=== PATIENT | female | born 1950 | race Caucasian/White ===

== ENCOUNTER → 2017-11-23 | Outpatient (CLI) | payer MEDICARE ==
--- NOTE | 2017-11-23 10:17 | RADIOLOGY REPORT (SQ) ---
EXAM DESCRIPTION: CT PELVIS WITH COMPLETED DATE/TIME: 11/23/2017 9:54 am REASON FOR STUDY: CHRONIC PELVIC PAIN R10.2 PELVIC AND PERINEAL PAIN COMPARISON: None. TECHNIQUE: CT scan of the pelvis performed with intravenous and oral contrast using helical scanning technique with dynamic intravenous contrast injection. Images reviewed with soft tissue and bone win dows. Reconstructed coronal and sagittal MPR images reviewed. Delayed images for evaluation of the ur inary system also acquired. All images stored on PACS. All CT scanners at this facility use dose modulation, iterative reconstruction, and/or weight based d osing when appropriate to reduce radiation dose to as low as reasonably achievable (ALARA). [facility]: Dose Right [facility]: CareDose [facility]: Dose Right [facility]: Teradose 4D [facility]: Hipbone CONTRAST TYPE AND DOSE: contrast/concentration: Isovue 350.00 mg/ml; Total Contrast Delivered: 72.0 ml; Total Saline Delivered: 66.0 ml RENAL FUNCTION: Creatinine 0.8. RADIATION DOSE: CT Rad equipment meets quality standard of care and radiation dose reduction techniq ues were employed. CTDIvol: 5.9 - 7.1 mGy. DLP: 375 mGy-cm.. LIMITATIONS: None. FINDINGS: PELVIC BONES: No acute fracture. Cortical bone island in the right iliac bone. No worris ome bone lesions. VISUALIZED SPINE: No acute findings. HIP(S): No acute fracture or dislocation. No worrisome bone lesions. PELVIC SOFT TISSUES: No significant masses. Normal bladder. No free fluid. EXTRAPELVIC SOFT TISSUES: No significant findings. BOWEL AND PERITONEAL CAVITY: No obstruction. No visualized masses. No free fluid. No inflammatory ch anges or thickening of bowel wall. OTHER: No other significant finding. IMPRESSION: NO SIGNIFICANT OR ACUTE FINDINGS IN THE PELVIS. TECHNICAL DOCUMENTATION: JOB ID: [id number] Quality ID # [id number]: Final reports with documentation of one or more dose reduction techniques (e.g., Au tomated exposure control, adjustment of the mA and/or kV according to patient size, use of iterative reconstruction technique) 2010 [employer] All Rights Reserved Reading location - IP/workstation name: [email or web address]
== END ==
LOC: RAD 09:14
PROVIDERS: ATTEND Student in an Organized Health Care Education/Training Program
DX: R10.2 Pelvic and perineal pain (principal)
CPT/HCPCS: 72193; 82565

== ENCOUNTER → 2020-02-09 | Outpatient (CLI) | payer MEDICARE ==
--- NOTE | 2020-02-09 12:16 | DRAGON STRESS TEST REPORT ---
Exercise nuclear stress test Date: February 09, 2020 Referring physician: Boris Lagos PA-C Performing physician: Jose Pope MD Indication: Chest pain Clinical history 70-year-old lady with systemic hypertension and dyslipidemia who reported central chest pain radiating through between her shoulder blades. No effort correlation was endorsed. We decided to proceed with exercise nuclear stress test Procedure The patient presented to the stress lab. Initially rest images were obtained according to standard protocol after the injection of 11.53 millicurie technetium 99m sestamibi. Subsequently the patient underwent exercise stress testing according to standard [place] protocol. The patient's resting EKG showed sinus rhythm at 81 bpm. Patient exercised according to standard [place] protocol for total of 6 minutes and 1 seconds. Baseline heart rate of 88 bpm michael to a maximum rate of 146 bpm which was 97% of predicted max HR for this patient. Resting blood pressure was 142/72 mmHg. This michael to a maximum blood pressure of 196/60 mmHg. There was appropriate increment in heart rate and a mildly hypertensive response to exercise. At peak exercise the patient was injected with 33.9 millicuries of technetium 99m sestamibi. The patient continued to run on the treadmill for approximately 60 seconds. After a period of rest, stress images were obtained according to standard protocol. The total workload was 7 METS. The patient's EKG and vital signs were monitored throughout the procedure. The test was terminated on account of patient achieving target heart rate and also mild discomfort in the hip and effort related dyspnea. No chest pain was reported. Stress EKG is difficult to interpret for ischemia due to excessive movement related artifact. EKG showed sinus rhythm at 81 beats per minute. The patient's stress EKG did not show any evidence for myocardial ischemia. There were no arrhythmias observed. Raw as well as processed rest and stress images were reviewed. There was mild to moderate gut uptake which did not interfere with the study. The rest and stress images show uniform uptake of radioactive isotope without any fixed or reversible defects to suggest myocardial ischemia or myocardial infarction. Attenuation correction was used for the study there is normal contractility post-rest. The calculated ejection fraction is 66%. The TID ratio is 0.78. Conclusion Stress EKG is difficult to interpret for ischemia due to excessive movement related artifact. Suboptimal exercise tolerance. There is no scintigraphic evidence of myocardial infarction or ischemia provoked by exercise. There is normal contractility post-stress. The gated left ventricular ejection fraction is 66 %. The patient will be given an appointment to discuss these results. [facility]ALTH[facility]
== END ==
LOC: RAD 08:03
PROVIDERS: ATTEND Internal Medicine
DX: R07.9 Chest pain, unspecified (principal); I10 Essential (primary) hypertension; E78.5 Hyperlipidemia, unspecified; I48.91 Unspecified atrial fibrillation; I25.9 Chronic ischemic heart disease, unspecified
CPT/HCPCS: 93017; 78452; A9500; Q9969

== ENCOUNTER → 2020-02-17 | Outpatient (CLI) | payer MEDICARE ==
--- NOTE | 2020-02-17 19:02 | XCELERA REPORT ---
[address] [address] Transthoracic Echocardiogram Report Name: CARLOS ZAVALA Age: 70 yrs Gender: Female : 1950 Patient Status: Outpatient Patient Location: Study Date: 02/17/2020 09:19 AM History: Atrial fibrillation HTN Height: 67 in Weight: 150 lb BSA: 1.8 m2 Procedure: A complete two-dimensional transthoracic echocardiogram was performed (2D, M-mode, spectral and color flow Doppler). Reason For Study: A-FIB, HTN, CHRONIC ISCHEMIC HEART DISEASE Ordering Physician: TI STYLES Performed By: Claribel Hughes Interpretation Summary Left ventricular systolic function is normal. The Ejection Fraction estimate is 55-60% The right ventricle is normal in size and function. There is no mitral regurgitation noted. There is no aortic valve stenosis There is a trace amount of aortic regurgitation There is a mild amount of tricuspid regurgitation There is mild pulmonary hypertension by echo There is no pericardial effusion. MMode/2D Measurements & Calculations RVDd: 3.3 cm LVIDd: 4.1 cm FS: 35.0 % Ao root diam: 2.4 cm IVSd: 1.1 cm LVIDs: 2.7 cm EDV(Teich): Ao root area: 75.1 ml LVPWd: 1.1 cm 4.6 cm2 ESV(Teich): LA dimension: 2.8 cm 26.4 ml EF(Teich): 64.8 % LVLd ap4: 7.8 cm SV(MOD-sp4): EDV(MOD-sp4): 65.0 ml 96.0 ml LVLs ap4: 6.3 cm ESV(MOD-sp4): 31.0 ml EF(MOD-sp4): 67.7 % Doppler Measurements & Calculations MV E max paddy: MV P1/2t max paddy: Ao V2 max: LV V1 max P.5 cm/sec 63.1 cm/sec 107.2 cm/sec 3.3 mmHg MV A max paddy: MV P1/2t: 94.9 msec Ao max PG: LV V1 max: 68.6 cm/sec 4.6 mmHg 91.0 cm/sec MVA(P1/2t): 2.3 cm2 MV E/A: 0.74 MV dec slope: 194.8 cm/sec2 MV dec time: 0.29 sec PA V2 max: PI end-d paddy: TR max paddy: MV P1/2t-pr_phl: 83.0 cm/sec 89.0 cm/sec 256.5 cm/sec 94.9 msec PA max PG: TR max P.8 mmHg 26.3 mmHg Left Ventricle The left ventricle is normal in size. There is moderate concentric left ventricular hypertrophy. Left ventricular systolic function is normal. The Ejection Fraction estimate is 55-60%. Doppler measurements suggest impaired left ventricular relaxation, which is associated with grade I/IV or mild diastolic dysfunction. No regional wall motion abnormalities noted. Right Ventricle The right ventricle is normal in size and function. Atria The right atrium is normal. The left atrial size is normal. Mitral Valve The mitral valve is grossly normal. There is no evidence of mitral valve prolapse. There is no mitral valve stenosis. There is no mitral regurgitation noted. Aortic Valve The aortic valve is trileaflet. The aortic valve is normal in structure and function. The aortic valve opens well. There is no aortic valve stenosis. There is a trace amount of aortic regurgitation. Tricuspid Valve The tricuspid valve is normal in structure and function. There is no tricuspid stenosis. There is a mild amount of tricuspid regurgitation. Right ventricular systolic pressure is estimated to be elevated at 30-40mmHg. There is mild pulmonary hypertension by echo. Pulmonic Valve The pulmonic valve is not well visualized. There is no pulmonic valvular stenosis. There is a trace amount of pulmonic regurgitation. Great Vessels The aortic root is normal size. The inferior vena cava appeared normal and decreased > 50% with respiration (RAP 5-10 mmHg). Effusions There is no pericardial effusion. : IT STYLES Anil
== END ==
LOC: SP 08:46
PROVIDERS: ATTEND Internal Medicine
DX: I10 Essential (primary) hypertension (principal); E78.5 Hyperlipidemia, unspecified; I25.9 Chronic ischemic heart disease, unspecified; I48.91 Unspecified atrial fibrillation
CPT/HCPCS: 93306